=== PATIENT | female | born 1955 | race Caucasian/White ===

== ENCOUNTER 2016-07-12 17:41 | Emergency (ER) | payer SELFPAY ==
[2016-07-12] MEDS ORDERED: Albuterol/Ipratropium 3.0-0.5 MG/3 ML Neb Soln NEB ONE (18:22)
--- NOTE | 2016-07-12 19:09 | EDM.PDOC ---
ED HISTORY OF PRESENT ILLNESS - General Chief Complaint: Respiratory Problem Stated Complaint: DIFFICULTY BREATHING Time Seen by Provider: 07/12/16 18:13 Source of Information: Reports: Patient History Limitations: Reports: No limitations - History of Present Illness INITIAL COMMENTS - FREE TEXT/NARRATIVE: Presents with a couple day history of cough, low-grade fever, ear pain and sore throat. She does not smoke. She had a flu shot. She took some Talisha and Tessalon Perles. - Related Data Allergies/ADRs: Allergies Allergy/AdvReac Type Severity Reaction Status Date / Time No Known Allergies Allergy Verified 10/20/13 09:05 Home Meds: Home Meds Escitalopram [Lexapro] 20 mg PO DAILY 10/20/13 [History] Hydrochlorothiazide 25 mg PO DAILY 10/20/13 [History] Simvastatin [Zocor] 20 mg PO BEDTIME 10/20/13 [History] traZODone 1 - 2 tab PO BEDTIME 10/20/13 [History] Calcium Carbonate/Vitamin D3 [Calcium 1,000 + D3 Caplet] 2 tab PO DAILY [History] Magnesium 1 tab PO DAILY 11/03/14 [History] Acetaminophen/Caffeine [Excedrin Tension Headache] 2 tab PO ASDIRECTED PRN 12/18 [History] Ascorbic Acid [Vitamin C] 2 tab PO DAILY 12/18/14 [History] Calcium Carb/D3/Mag AA Chelate [Coral Calcium Capsule] 1 tab PO DAILY 12/18/14 [ History] Fish Oil/Borage/Flax/Om3,6,9#1 [[place] 3-6-9 Complex Softgel] 1,000 mg PO DAILY 12/18/14 [History] Losartan Potassium 100 mg PO DAILY 12/18/14 [History] Albuterol/Ipratropium [DuoNeb 3.0-0.5 MG/3 ML] 3 ml NEB Q4HRRT PRN #25 neb 07/12 [Rx] amLODIPine Besylate [Amlodipine Besylate] 1 tab PO DAILY 07/12/16 [History] predniSONE [Prednisone] 40 mg PO DAILY #12 tablet 07/12/16 [Rx] Past Medical History Cardiovascular History: Reports: High cholesterol, Hypertension Other Respiratory History: pt states she has had Reactive airway disease Other Musculoskeletal History: chondromalasia bilateral knees, reticulopathic cyatica Other Neuro History: states has had black out spells in the past, states "etiology unknown" Other Endocrine/Metabolic History: "pre-diabetic" Social & Family History - Tobacco Use Smoking Status *Q: Never Smoker Used Tobacco, but Quit: Yes Second Hand Smoke Exposure: No - Alcohol Use Days Per Week of Alcohol Use: 0 - Recreational Drug Use Recreational Drug Use: No ED ROS GENERAL - Review of Systems Review Of Systems: ROS reveals no pertinent complaints other than HPI. ED EXAM, GENERAL - Physical Exam Exam: See Below Exam Limited By: No limitations General Appearance: alert, no apparent distress Ears: normal external exam Nose: normal inspection Throat/Mouth: Normal inspection Head: atraumatic, normocephalic Neck: normal inspection. No: lymphadenopathy (L), lymphadenopathy (R) Respiratory/Chest: no respiratory distress, lungs clear, normal breath sounds, no accessory muscle use Cardiovascular: normal peripheral pulses, regular rate, rhythm, no murmur GI/Abdominal: soft Back Exam: normal inspection Extremities: normal inspection Neurological: alert, oriented Psychiatric: normal affect, normal mood Skin Exam: Warm, Dry, Intact, Normal color, No rash Lymphatic: no adenopathy Course - Vital Signs Last Recorded V/S: Last Vital Signs Temp 36.9 C 07/12/16 18:04 Pulse 111 H 07/12/16 18:04 Resp 18 07/12/16 18:04 BP 138/79 07/12/16 18:04 Pulse Ox 96 07/12/16 18:30 - Orders/Labs/Meds Orders: Active Orders 24 hr Category Date Time Status RT Aerosol Therapy [RC] ASDIRECTED Care 07/12/16 18:22 Ordered Meds: Medications Discontinued Medications Generic Name Dose Route Start Last Admin Trade Name Edgarq PRN Reason Stop Dose Admin Albuterol/Ipratropium 3 ml 07/12/16 18:22 07/12/16 18:34 Duoneb 3.0-0.5 Mg/3 Ml NEB 07/12/16 18:23 3 ml ONETIME ONE Administration - Re-Assessments/Exams Free Text/Narrative Re-Assessment/Exam: 07/12/16 18:59 The patient stated that she feels much better after the nebulizer treatment. The nursing staff stated that she walked out in the [place] and had like a panic attack where she was taking in a deep breath and then holding it without breathing. They talked her down off of that. The patient states that she did have a panic attack about 10 years ago but believes she is not having any now and that this is merely related to bronchospasm. Departure - Departure Time of Disposition: 19:01 Disposition: Home, Self-Care 01 Clinical Impression: Bronchospasm Referrals: PCP,None [Primary Care Provider] - [facility] [Outside] [facility] [Outside] Forms: ED Department Discharge Additional Instructions: 1. duoneb nebulizer treatment every 4 hours as needed for for bronchospasm 2. prednisone 20 mg, 2 tabs daily for 12 days 3. Cheratussin with codeine 10 cc every 4-6 hours as needed for cough with driving precautions 4. followup in primary care clinic - My Orders Last 24 Hours: My Active Orders 07/12/16 18:22 RT Aerosol Therapy [RC] ASDIRECTED - Assessment/Plan Last 24 Hours: My Active Orders 07/12/16 18:22 RT Aerosol Therapy [RC] ASDIRECTED
[2016-07-12 19:20] VITALS: BP 130/70
== END 2016-07-12 19:19 | disposition home or self-care (01) ==
LOC: MW.ED 17:41
DX: J98.01 Acute bronchospasm (principal); I10 Essential (primary) hypertension; Z79.899 Other long term (current) drug therapy; E78.00 Pure hypercholesterolemia, unspecified
CPT/HCPCS: 94664; 99284

== ENCOUNTER 2018-02-04 09:24 | Emergency (ER) | payer SELFPAY ==
[2018-02-04 09:43] VITALS: BP 120/101
[2018-02-04] MEDS ORDERED: Ketorolac 60 MG/2 ML SDV IM ONE (10:05)
--- NOTE | 2018-02-04 10:28 | EDM.PDOC ---
ED HPI GENERAL MEDICAL PROBLEM - General Chief Complaint: Lower Extremity Injury/Pain Stated Complaint: SEVERE PAIN IN RIGHT LEG Time Seen by Provider: 02/04/18 09:33 - History of Present Illness INITIAL COMMENTS - FREE TEXT/NARRATIVE: HISTORY AND PHYSICAL: History of present illness: Patient is a 62-year-old white female with history of sciatica who presents with concern of left but I can hip pain with radiation down her posterior thigh consistent with prior episodes of sciatica although patient states this is more severe than her usual episodes. She has seen chiropractor in the past for same there's been no fever chills nausea vomiting trauma or other concern reported Review of systems: As per history of present illness and below otherwise all systems reviewed and negative. Past medical history: As per history of present illness and as reviewed below otherwise noncontributory. Surgical history: As per history of present illness and as reviewed below otherwise noncontributory. Social history: No reported history of drug or alcohol abuse. Family history: As per history of present illness and as reviewed below otherwise noncontributory. Physical exam: HEENT: Atraumatic, normocephalic, pupils reactive, negative for conjunctival pallor or scleral icterus, mucous membranes moist, throat clear, neck supple, nontender, trachea midline. Lungs: Clear to auscultation, breath sounds equal bilaterally, chest nontender. Heart: S1S2, regular, negative for clicks, rubs, or JVD. Abdomen: Soft, nondistended, nontender. Negative for masses or hepatosplenomegaly. Negative for costovertebral tenderness. Pelvis: Stable nontender. Genitourinary: Deferred. Rectal: Deferred. Extremities: Atraumatic, negative for cords or calf pain. Neurovascular unremarkable. Neuro: Awake, alert, oriented. Cranial nerves II through XII unremarkable. Cerebellum unremarkable. Motor and sensory unremarkable throughout. Exam nonfocal. Back: Patient has pain over the left sciatic notch there is no vertebral body point tenderness or other significant findings Diagnostics: None Therapeutics: Norflex Toradol Impression: #1 sciatica Definitive disposition and diagnosis as appropriate pending reevaluation and review of above. Left Back Pain Score (Numeric/FACES): 10 - Related Data Allergies Allergy/AdvReac Type Severity Reaction Status Date / Time No Known Allergies Allergy Verified 02/04/18 09:49 Home Meds: Home Meds Escitalopram [Lexapro] 20 mg PO DAILY 10/20/13 [History] Simvastatin [Zocor] 10 mg PO BEDTIME 10/20/13 [History] hydroCHLOROthiazide [Hydrochlorothiazide] 25 mg PO DAILY 10/20/13 [History] traZODone 1 - 2 tab PO BEDTIME 10/20/13 [History] Calcium Carbonate/Vitamin D3 [Calcium 1,000 + D3 Caplet] 2 tab PO DAILY [History] Magnesium 1 tab PO DAILY 11/03/14 [History] Acetaminophen/Caffeine [Excedrin Tension Headache] 2 tab PO ASDIRECTED PRN 12/18 [History] Ascorbic Acid [Vitamin C] 2 tab PO DAILY 12/18/14 [History] Calcium Carb/D3/Mag AA Chelate [Coral Calcium Capsule] 1 tab PO DAILY 12/18/14 [ History] Fish Oil/Borage/Flax/Om3,6,9#1 [[place] 3-6-9 Complex Softgel] 1,000 mg PO DAILY 12/18/14 [History] Albuterol/Ipratropium [DuoNeb 3.0-0.5 MG/3 ML] 3 ml NEB Q4HRRT PRN #25 neb 07/12 [Rx] amLODIPine Besylate [Amlodipine Besylate] 1 tab PO DAILY 07/12/16 [History] Past Medical History Cardiovascular History: Reports: High Cholesterol, Hypertension Other Respiratory History: pt states she has had Reactive airway disease Other Musculoskeletal History: chondromalasia bilateral knees, reticulopathic cyatica Other Neuro History: states has had black out spells in the past, states "etiology unknown" Psychiatric History: Reports: Depression Other Endocrine/Metabolic History: "pre-diabetic" - Infectious Disease History Infectious Disease History: Reports: Chicken Pox, Measles - Past Surgical History GI Surgical History: Reports: Cholecystectomy Social & Family History - Family History Family Medical History: Noncontributory - Tobacco Use Smoking Status *Q: Former Smoker Used Tobacco, but Quit: Yes Month/Year Tobacco Last Used: 1989 - Caffeine Use Caffeine Use: Reports: None - Recreational Drug Use Recreational Drug Use: No Review of Systems - Review of Systems Review Of Systems: ROS reveals no pertinent complaints other than HPI. ED EXAM, GENERAL - Physical Exam Exam: See Below (See dictation) Course - Vital Signs Last Recorded V/S: Last Vital Signs Temp 36.3 C 02/04/18 09:45 Pulse 96 02/04/18 09:45 Resp 18 02/04/18 09:45 BP 120/101 H 02/04/18 09:45 Pulse Ox 97 02/04/18 09:45 - Orders/Labs/Meds Orders: Active Orders 24 hr Category Date Time Status Orphenadrine [Norflex] Med 02/04/18 10:15 Active 60 mg IM Q12H Medication Orders Orphenadrine Citrate (Norflex) 60 mg IM Q12H HERVE Last Admin: 02/04/18 10:24 Dose: 60 mg Meds: Medications Generic Name Dose Route Start Last Admin Trade Name Freq PRN Reason Stop Dose Admin Orphenadrine Citrate 60 mg 02/04/18 10:15 02/04/18 10:24 Norflex IM 60 mg Q12H HERVE Administration Discontinued Medications Generic Name Dose Route Start Last Admin Trade Name Freq PRN Reason Stop Dose Admin Ketorolac Tromethamine 60 mg 02/04/18 10:05 02/04/18 10:23 Toradol IM 02/04/18 10:06 60 mg ONETIME ONE Administration Departure - Departure Time of Disposition: 10:26 Disposition: Home, Self-Care 01 Condition: Good Clinical Impression: Sciatica - Discharge Information *PRESCRIPTION DRUG MONITORING PROGRAM REVIEWED*: Not Applicable *COPY OF PRESCRIPTION DRUG MONITORING REPORT IN PATIENT JODY: Not Applicable Referrals: Lulú Duckworth [employer] [Primary Care Provider] - Additional Instructions: The following information is given to patients seen in the emergency department who are being discharged to home. This information is to outline your options for follow-up care. We provide all patients seen in our emergency department with a follow-up referral. The need for follow-up, as well as the timing and circumstances, are variable depending upon the specifics of your emergency department visit. If you don't have a primary care physician on staff, we will provide you with a referral. We always advise you to contact your personal physician following an emergency department visit to inform them of the circumstance of the visit and for follow-up with them and/or the need for any referrals to a consulting specialist. The emergency department will also refer you to a specialist when appropriate. This referral assures that you have the opportunity for followup care with a specialist. All of these measure are taken in an effort to provide you with optimal care, which includes your followup. Under all circumstances we always encourage you to contact your private physician who remains a resource for coordinating your care. When calling for followup care, please make the office aware that this follow-up is from your recent emergency room visit. If for any reason you are refused follow-up, please contact the [facility] emergency department at and asked to speak to the emergency department charge nurse. Flexeril diclofenac Medrol as prescribed follow-up primary medical doctor return as needed as discussed - My Orders Last 24 Hours: My Active Orders 02/04/18 10:15 Orphenadrine [Norflex] 60 mg IM Q12H - Assessment/Plan Last 24 Hours: My Active Orders 02/04/18 10:15 Orphenadrine [Norflex] 60 mg IM Q12H
== END 2018-02-04 10:56 | disposition home or self-care (01) ==
LOC: MW.ED 09:24
DX: M54.32 Sciatica, left side (principal); I10 Essential (primary) hypertension; Z79.899 Other long term (current) drug therapy; Z87.891 Personal history of nicotine dependence
CPT/HCPCS: 96372; 99283; J1885; J2360

== ENCOUNTER 2022-01-24 08:42 | Day surgery (SDC) | payer MEDICARE, OTHER ==
[~2022-01-24 08:42] MED LIST: Lactated Ringers 1,000 ML IV SCH; Propofol 200 MG/20 ML SDV ONE; fentaNYL 100 MCG/2 ML SDV ONE
[2022-01-24] MEDS ORDERED: Lactated Ringers 1,000 ML IV SCH (11:00)
[2022-01-24 11:27] VITALS: BP 143/85; PULSE 76
== END 2022-01-24 11:45 | disposition home or self-care (01) ==
LOC: MW.SDS 08:42
PROVIDERS: ATTEND Surgery
DX: Z12.11 Encounter for screening for malignant neoplasm of colon (principal); K57.30 Diverticulosis of large intestine without perforation or abscess without bleeding; F41.8 Other specified anxiety disorders; E78.00 Pure hypercholesterolemia, unspecified; I10 Essential (primary) hypertension; G47.00 Insomnia, unspecified; G43.909 Migraine, unspecified, not intractable, without status migrainosus; J45.990 Exercise induced bronchospasm; E66.9 Obesity, unspecified; Z80.3 Family history of malignant neoplasm of breast; Z80.1 Family history of malignant neoplasm of trachea, bronchus and lung; Z87.891 Personal history of nicotine dependence; Z86.010 Personal history of colon polyps; Z86.16 Personal history of COVID-19; Z79.82 Long term (current) use of aspirin; Z79.899 Other long term (current) drug therapy; Z90.49 Acquired absence of other specified parts of digestive tract; Z98.890 Other specified postprocedural states; Z68.38 Body mass index [BMI] 38.0-38.9, adult
CPT/HCPCS: G0105; J2704; J3010; J7120; 00812